=== PATIENT | male | born 2000 | race Two or more races ===

== ENCOUNTER 2021-09-16 04:03 | Emergency (ER) | payer SELFPAY ==
[~2021-09-16] VITALS: Ht 167.6 cm; Wt 59.0 kg
--- NOTE | 2021-09-16 04:10 | NUR ---
BIBRA FOR ETOH AND COCAINE USE. DENIES ANY PAIN. PT AWAKE. TOLERATING R/A WELL WITH NO SOB CONNECTED PT WITH POX AND MONITOR.
--- NOTE | 2021-09-16 07:35 | NUR ---
PT ASSESSED ON BED AWAKE AND ALERT, [id number] SYRIAC SPEAKING ONLY, NOT IN RESPIRATORY DISTRERSS, V/S STABLE, KEPT RESTED AND COMFORTABLE. WILL CONTINUE TO MONITOR.
--- NOTE | 2021-09-16 10:35 | NUR ---
PT SISTER AT BEDSIDE FOR ENTERPRISE SECURITY ARCHITECT.
[2021-09-16 10:36] VITALS: BP 135/84
== END 2021-09-16 10:36 | disposition home or self-care (01) ==
LOC: ER 04:11 → EDBD 04:11 → ER 10:36
DX: F10.129 Alcohol abuse with intoxication, unspecified (principal); F14.10 Cocaine abuse, uncomplicated; Y90.9 Presence of alcohol in blood, level not specified